=== PATIENT | male | born 1960 | race Caucasian/White ===

== ENCOUNTER 2019-01-10 01:37 | Outpatient (CLI) | payer OTHER, SELFPAY ==
[2019-01-10 10:34] LABS: Potassium 3.8 mmol/L (3.5-5.1)
== END 2019-01-10 01:57 ==
PROVIDERS: Visit Provider Neurological Surgery
DX: E87.6 Hypokalemia (principal)
CPT/HCPCS: 36415; 84132

== ENCOUNTER 2019-07-17 18:34 | Emergency (ER) | payer OTHER, SELFPAY ==
[2019-07-17 18:37] VITALS: BP 156/89; PULSE 87; RESP 20; TEMP 36.6; O2SAT 97
--- NOTE | 2019-07-17 18:48 | ED.GENADUL_ITS ---
Discharge Plan Disposition Patient Disposition: HOME Condition: Good Discharge Details Chief Complaint: Trauma Clinical Impression: Fall, Elbow fracture, left Primary Care Provider: [facility] [facility] Provider: Zehra Baca Home Meds and New Rx's Prescriptions: No Action bupropion HCl 150 MG tablet extended release 12 hr 1 tab PO HS RF: 0 citalopram 40 MG tablet 1 tab PO BID RF: 0 simvastatin 80 MG tablet 1 tab PO HS RF: 0 aspirin [Aspir-81] 81 MG tablet,delayed release (DR/EC) 1 tab PO HS RF: 0 oxycodone-acetaminophen 1 TAB tablet 1 tab PO PRN PRNRF: 0 clonidine HCl [Catapres] 0.2 MG tablet 1 tab PO HS RF: 0 fish oil-dha-epa 1 EACH capsule 1 cap PO BID RF: 0 naproxen 375 MG tablet 375 mg PO BID RF: 0 Spiriva with HandiHaler 18 MCG capsule, w/inhalation device 1 inh Inhalation DAILY RF: 0 meclizine [Antivert] 25 MG tablet 25 mg PO TID PRN PRNQty: 30 RF: 0 Discharge Instructions Instructions: Elbow Fracture in Adults (ED) Additional Instructions: Rest. Activities as tolerated. Elevate injury to prevent swelling. Keep splint in place, clean and dry. Wear sling during day but remove at night as discussed. Ice to the area of discomfort for 15 min. 3-5 times daily. Motrin every 8 hours with food or Tylenol every 6 hours for soreness if needed over the counter for comfort. [facility] doctor or [facility] one week Return for any worsening or concerns sooner if needed. Referrals: Brett Parra MD [ [facility] STAFF PHYSICIAN] - Discharge Data Discharge Date/Time-TO BE ENTERED AT DEPARTURE: 07/17/19 21:35 Medical Decision Making Is a 58-year-old patient presenting after a fall off the second rung of a ladder from the bottom patient fell onto his left side. Patient denies striking his head but does have an apparent hematoma on the superior aspect of his scalp. Patient is 3 months status post spinal disc surgery. Denies obvious neck pain but does report obvious left shoulder pain. Patient also complaining of mild left elbow pain. Patient denies chest pain with difficulty breathing shortness of breath or wheezing. Patient denies obvious abdominal pain or distention. Denies hematuria. Injury occurred this morning. Patient reports persistent pain throughout the day. Denies numbness, tingling or weakness. Denies any radiating symptoms to his legs. Patient denies any difficulty ambulating. Patient did take his daily pain medication for pain relief. Patient denies use of blood thinners. On exam again patient has a notable hematoma of his scalp. Denies obvious headache, dizziness, nausea, vomiting does report mild tingling in the left side of his face which he did have prior to his neck surgery and had somewhat improved after having his neck surgery. He is concerned with the return of tingling in the left side of his face. Patient has no significant midline tenderness at this time however given his mechanism and complaints of return of tingling will apply cervical collar and reimage his spine. Patient does have left-sided clavicle tenderness as well as shoulder pain with palpation. No humeral pain on exam. Obvious elbow pain noted. Imaging specifically CT head and cervical spine ordered as well as x-rays of thoracic spine as he does have mild midline tenderness in the T-spine. No associated step-off as discussed in physical exam. X-rays of clavicle, shoulder and left elbow ordered. Patient provided additional Tylenol by mouth. Patient is clinically stable, injury occurred at 9:00 this morning is hemodynamically stable at this time. CT of his head and cervical spine reveal no acute fracture or abnormalities. Cervical spine cleared. Patient has full range of motion without any paresthesia of upper or lower extremities. No concern for ligamentous injury on exam. X-rays of thoracic spine unremarkable for obvious fracture. Similarly left clavicle and shoulder x-rays are unremarkable. There is a question of a intra- articular radial head fracture of the left elbow. Given left elbow x-ray findings and patient does have point tenderness as well as pain with supination pronation of the elbow posterior splint placed as well as sling recommended rice and orthopedic follow-up. Patient agrees with plan of care. At this time patient feels stable for discharge. Close follow-up encouraged with primary care doctor. The patient was stable and requested discharge. Prior to discharge, my usual and customary return precautions were reviewed with the patient - this included follow-up instructions and reasons to return to the Emergency Department if conditions worsens, does not improve as expected, or other new concerns arise. HPI General Date/Time Provider Initiated Documentation: 07/17/19 18:36 . HPI Narrative: This is a 58-year-old patient presenting for a fall off the second rung from the bottom of a ladder. Patient reports he fell directly onto his left shoulder. Patient complaining of left clavicle, shoulder pain. Patient denies striking his head although nursing has reported an obvious hematoma to the superior scalp. Patient denies headache, dizziness, nausea, vomiting, loss of consciousness. Patient does report mild tingling of the left side of his face. Patient denies significant neck pain however he is 3 months status post neck surgery. Patient denies any chest pain, difficulty breathing shortness of breath or wheezing. Denies abdominal pain, distention or hematuria. Patient denies any right upper extremity pain or bilateral lower extremity pain. No numbness, tingling or weakness associated. Patient denies any other concerns or complaints at this time. Patient's injury occurred at approximately 9:00 this morning. Patient has been ambulating without difficulty. Patient primarily concerned with left shoulder pain. Related Data Home Medications Medication Instructions Recorded Confirmed aspirin [Aspir-81] 1 tab PO HS 11/24/13 07/17/19 bupropion HCl 1 tab PO HS 11/24/13 07/17/19 citalopram 1 tab PO BID 11/24/13 07/17/19 clonidine HCl [Catapres] 1 tab PO HS 11/24/13 07/17/19 fish oil-dha-epa 1 cap PO BID 11/24/13 07/17/19 oxycodone-acetaminophen 1 tab PO PRN PRN 11/24/13 07/17/19 simvastatin 1 tab PO HS 11/24/13 07/17/19 Spiriva with HandiHaler 1 inh INHALATION DAILY 11/16/14 07/17/19 naproxen 375 mg PO BID 11/16/14 07/17/19 meclizine [Antivert] 25 mg PO TID PRN PRN #30 tab 09/16/15 07/17/19 Previous Rx's Medication Instructions Recorded meclizine [Antivert] 25 mg PO TID PRN PRN #30 tab 09/16/15 Allergies Allergy/AdvReac Type Severity Reaction Status Date / Time gabapentin Allergy Severe partial Verified 07/17/19 18:41 paralysis venom-honey bee Allergy Intermediate Swelling/Ed Verified 07/17/19 18:41 [bee venom (honey bee)] diego General Stated Complaint: Trauma LUCINDA: 3 Review of Systems All systems reviewed & are unremarkable except as noted in HPI and below Constitutional Constitutional: Denies fatigue, Denies fever(s), Denies headache(s) and Denies malaise Eyes Eyes: Denies blurry vision, Denies diplopia and Denies loss of vision ENT Ears, Nose, Mouth, and Throat: Denies dizziness, Denies ear discharge, Denies otalgia, Denies headache(s), Denies nasal discharge and Denies neck pain Cardiovascular Cardiovascular: Denies chest pain, Denies dyspnea and Denies dyspnea on exertion Respiratory Respiratory: Denies cough, Denies pain on inspiration, Denies pain with cough, Denies dyspnea and Denies dyspnea on exertion Gastrointestinal Gastrointestinal: Denies abdominal pain, Denies bloating, Denies nausea and Denies vomiting Genitourinary Genitourinary: Denies hematuria Musculoskeletal Musculoskeletal: Denies abnormal gait, Denies deformity, Denies joint swelling, Reports limited range of motion (Left shoulder), Denies neck pain, Denies numbness and Denies tingling Integumentary/Breasts Skin/Breast: Denies wounds Neurologic Neurologic: Denies abnormal speech, Denies abnormal gait, Denies dizziness, Denies headache(s), Denies focal weakness, Denies loss of vision, Denies numbness, Denies tingling and Denies paresthesias Endocrine Endocrine: Denies fatigue [facility] Social History Smoking/Tobacco Use Status: Never Alcohol Intake: current Alcohol Intake frequency: holidays/special occasions only Drug use: Never Substance use type: does not use Do you feel safe at home: Yes Do you feel safe in your relationship?: Yes Exam Narrative Exam Narrative: CONST: Healthy appearing patient, in no acute distress. Well hydrated. Alert and alert. HENMT: Head nomocephalic, normal to inspection. Superior scalp hematoma present. No laceration associated. Hearing grossly normal. External ear canal no erythema or swelling. TM normal bilaterally. Nose normal to inspection. No rhinnorhea. Normal facial exam. Oral mucosa normal. Tounge normal. Dentition normal. Normal posterior oropharynx. Uvula midline. EYES: General normal appearance. Alignment normal. Eyelids normal. Conjunctiva normal. Sclera normal. PERRL. No nystagmus. NECK: Normal visual inspection. FROM. No lymphadenopathy. Trachea midline. No Midline tenderness. Mild paraspinal tenderness. CHEST: Normal insepection of the chest. No palpable chest pain RESP: Normal respiratory effort. Speaking full sentences. No cough. No wheezing. No retractions. Clear to auscaltation. Breath sound equal and present bilaterally. CARDIO: No JVD. Normal PMI. Regular Rate. Regular Rhythm. Normal peripheral pulses. GI: Normal inspection of abdomen. No distension. Soft. Nontender. Bowel sounds present in all 4 quadrants. No rebound. No gaurding. MUSCULOSKELETAL: Normal Gait. FROM right upper and bilateral lower extremities. Distal neurovascularly intact. Sensation intact distally. Pain with palpation of left clavicle, left shoulder. He has no obvious deformity noted at the left shoulder. No significant humeral pain with palpation. Elbow pain with palpation noted as well as pain with supination pronation of the elbow. No significant forearm, wrist or hand pain with palpation. Pulses intact distally. Sensation intact distally. [employer]ator strength normal and equal bilaterally. SKIN: Normal. Dry. No rashes. NEURO: Alert and awake. Speech clear. Alert and oriented x 3. Speech is clear. Cranial nerves intact as tested III - XI. Normal [id number]-[id number] test. No pronator drift. Normal heel-sandoval test. No Nystagmus. Gait normal. Strength intact in all extremities. Sensation intact in all extremities. PSYCH: Normal affect. Cooperative. Course Vital Signs Vital signs: Vital Signs Temperature 36.6 C 07/17/19 18:37 Pulse 87 07/17/19 18:37 Respiratory Rate 07/17/19 18:37 Blood Pressure 156/89 H 07/17/19 18:37 Pulse Oximetry 97 07/17/19 18:37 Temperature 36.6 C 07/17/19 18:37 Temperature Source Temporal Artery Scan 07/17/19 18:37 Pulse 87 07/17/19 18:37 Respiratory Rate 07/17/19 18:37 Blood Pressure 156/89 H 07/17/19 18:37 Blood Pressure Position Sitting 07/17/19 18:37 Pulse Oximetry 97 07/17/19 18:37 Oxygen Delivery Method Room Air 07/17/19 18:37 Oxygen Flow Rate 0 07/17/19 18:37 Procedures Orthopedic Splinting/Casting Injury #1: Side: left Upper Extremity Injury Location: elbow Upper Extremity Immobilizer: sling/shoulder immobilizer and posterior splint
--- NOTE | 2019-07-17 19:01 | DI.CT_ITS ---
EXAM: CT HEAD CERVICAL SPINE WO CLINICAL HISTORY: pain, fall TECHNIQUE: Imaging Protocol: Axial computed tomography images with coronal and sagittal reformatted images were created and reviewed Noncontrast COMPARISON: HEAD AND CSPINE W/O CONTRAST from 04/09/2016 FINDINGS: Head CT Ventricles and Extra axial spaces: Normal in size and morphology for the patient's age. Hemorrhage: None. Cerebral parenchyma: Normal. Midline shift: None. Brainstem/Cerebellum: Normal. Calvarium: Normal. Visualized Paranasal sinuses/Mastoids: Clear. IMPRESSION: No acute abnormality. FINDINGS: Cervical Spine CT BONES: Vertebral body heights are maintained. Intervertebral disc spaces are normal. There is a meta llic density seen at the C5-6 disc space. Alignment is normal. There is no evidence of acute fractur e. SOFT TISSUES: No paraspinal hematoma. The airway appears intact. Mild degenerative disc changes and facet degenerative changes are seen . IMPRESSION: Postsurgical and degenerative changes, no acute abnormality. DATA REPOSITORY: All CT scans at this facility are submitted to the National Radiology Data Registry (NRDR) Dose Index Registry (DIR) with the [employer] (ACR). RADIATION OPTIMIZATION: All CT scans at this facility use at least one of these dose optimization te chniques: automated exposure control; mA and/or kV adjustment per patient size (includes targeted exa ms where dose is matched to clinical indication); or iterative reconstruction.
--- NOTE | 2019-07-17 19:09 | DI.RAD_ITS ---
EXAM: XR ELBOW LT COMPLETE INDICATION: pain, fall. COMPARISON: No exams were available for comparison TECHNIQUE: 2D digital imaging was performed. FINDINGS: No fracture or joint effusion is seen. There is mild spurring at both epicondyles. IMPRESSION: No acute abnormality.
--- NOTE | 2019-07-17 19:16 | DI.RAD_ITS ---
EXAM: XR SHOULDER LT COMPLETE 2+V INDICATION: pain, fall. COMPARISON: No exams were available for comparison TECHNIQUE: 2D digital imaging was performed. FINDINGS: No fracture or dislocation is seen. There are degenerative changes at the AC joint. The AC joint is not widened. IMPRESSION: No acute abnormality.
--- NOTE | 2019-07-17 19:19 | DI.RAD_ITS ---
EXAM: XR CLAVICLE LT INDICATION: pain, fall. COMPARISON: No exams were available for comparison TECHNIQUE: 2D digital imaging was performed. FINDINGS: No fracture or dislocation is seen. The AC joint is not widened. There are degenerative changes at the AC joint. IMPRESSION: No acute abnormality.
--- NOTE | 2019-07-17 19:22 | DI.VRAD_ITS ---
PROCEDURE INFORMATION: Exam: CT Head Without Contrast Exam date and time: 07/17/2019 7:01 PM Age: 58 years old Clinical indication: Injury or trauma; Initial encounter; Patient HX: Pain, fall; Per PT: Fell off ladder, 2 steps up TECHNIQUE: Imaging protocol: Computed tomography of the head without contrast. COMPARISON: MRI - BRAIN WO CONTRAST 04/10/2016 8:04 PM FINDINGS: Brain: Normal. No hemorrhage. Unremarkable white matter. No mass effect. Ventricles: Normal. No ventriculomegaly. Bones/joints: Unremarkable. No acute fracture. Sinuses: Visualized sinuses are unremarkable. No fluid levels. Mastoid air cells: Visualized mastoid air cells are well aerated. Soft tissues: Unremarkable. IMPRESSION: No acute intracranial abnormality. PROCEDURE INFORMATION: Exam: CT Cervical Spine Without Contrast Exam date and time: 07/17/2019 7:01 PM Age: 58 years old Clinical indication: Injury or trauma; Initial encounter; Patient HX: Pain, fall; Per PT: Fell off ladder, 2 steps up TECHNIQUE: Imaging protocol: Computed tomography images of the cervical spine without contrast. COMPARISON: MRI - BRAIN WO CONTRAST 04/10/2016 8:04 PM FINDINGS: Tubes, catheters and devices: Surgical device at the C5/C6 disc space Vertebrae: No acute fracture of the cervical spine. No subluxation or dislocation of the cervical spine. Anterior osteophyte formation C6/C7 Degenerative changes in the facets at multiple levels Discs/Spinal canal/Neural foramina: Intervertebral disc space narrowing C6/C7 may represent degenerative disc disease.. Posterior osteophyte formation C6/C7 Degenerative changes at C1/C2 Soft tissues: Unremarkable. Thyroid: The thyroid is unremarkable Lungs: Lung apices are normal. IMPRESSION: 1. No acute fracture of the cervical spine. 2. No subluxation or dislocation of the cervical spine. 3. Intervertebral disc space narrowing C6/C7 may represent degenerative disc disease.. 4. Posterior osteophyte formation along the cervical spine results in narrowing of the spinal canal to less than 10 mm consistent with spinal stenosis. Dictated and Authenticated by: Yari Zavala MD. Ordering:RUBIN Shahid MD
[2019-07-17] MEDS: Acetaminophen 500 MG TAB 1000 MG PO (19:33)
--- NOTE | 2019-07-17 19:43 | DI.VRAD_ITS ---
PROCEDURE INFORMATION: Exam: XR Left Shoulder Exam date and time: 07/17/2019 7:30 PM Age: 58 years old Clinical indication: Pain; Shoulder; Left; Patient HX: Fall from ladder TECHNIQUE: Imaging protocol: XR Left shoulder. Views: 2 or more views. COMPARISON: No relevant prior studies available. FINDINGS: Bones/joints: Degenerative changes in the glenohumeral joints and acromioclavicular joints There is no evidence of acute fracture.There is no evidence of malalignment or dislocation. Soft tissues: Normal. IMPRESSION: There is no evidence of acute fracture.There is no evidence of malalignment or dislocation. Dictated and Authenticated by: Yari Zavala MD. Ordering:RUBIN Shahid MD
--- NOTE | 2019-07-17 19:44 | DI.VRAD_ITS ---
PROCEDURE INFORMATION: Exam: XR Left Elbow Exam date and time: 07/17/2019 7:30 PM Age: 58 years old Clinical indication: Pain; Elbow; Left; Patient HX: Fall from ladder TECHNIQUE: Imaging protocol: XR Left elbow. Views: 3 or more views. COMPARISON: No relevant prior studies available. FINDINGS: Bones/joints: Lucency in the radial head may represent nondisplaced intra-articular radial head fracture. Soft tissues: Normal. IMPRESSION: Lucency in the radial head may represent nondisplaced intra-articular radial head fracture. Dictated and Authenticated by: Yari Zavala MD. Ordering:RUBIN Shahid MD
--- NOTE | 2019-07-17 19:45 | DI.VRAD_ITS ---
PROCEDURE INFORMATION: Exam: XR Left Clavicle, Complete Exam date and time: 07/17/2019 7:29 PM Age: 58 years old Clinical indication: Pain; Shoulder; Left; Patient HX: Fall from ladder TECHNIQUE: Imaging protocol: XR Left clavicle complete. Any number of views. COMPARISON: No relevant prior studies available. FINDINGS: Bones/joints: No fracture of the clavicle. There is no evidence of acute fracture.There is no evidence of malalignment or dislocation. Degenerative changes in the glenohumeral joint and acromioclavicular joint. Soft tissues: Normal. IMPRESSION: 1. No fracture of the clavicle. 2. There is no evidence of acute fracture.There is no evidence of malalignment or dislocation. Dictated and Authenticated by: Yari Zavala MD. Ordering:RUBIN Shahid MD
--- NOTE | 2019-07-17 19:49 | DI.RAD_ITS ---
EXAM: XR THORACIC SPINE COMPLETE INDICATION: pain, fall. TECHNIQUE: 2D digital imaging was performed. FINDINGS: No fracture is identified. There are mild degenerative disc changes. There is no scoliosis. The vi sualized portions of the lungs are unremarkable. The heart size appears normal. IMPRESSION: Degenerative changes. No acute abnormality.
--- NOTE | 2019-07-17 20:18 | DI.VRAD_ITS ---
PROCEDURE INFORMATION: Exam: XR Thoracic Spine, 3 Views Exam date and time: 07/17/2019 6:51 PM Age: 58 years old Clinical indication: Injury or trauma; Initial encounter; Blunt trauma (contusions or hematomas); Prior surgery; Patient HX: Fall from ladder; TECHNIQUE: Imaging protocol: XR of the thoracic spine, 3 views. COMPARISON: No relevant prior studies available. FINDINGS: Vertebrae: There is no evidence of acute fracture.There is no evidence of malalignment or dislocation. Degenerative changes in the thoracic spine Soft tissues: Normal. IMPRESSION: There is no evidence of acute fracture.There is no evidence of malalignment or dislocation. Dictated and Authenticated by: Yari Zavala MD. Ordering:RUBIN Shahid MD
[2019-07-17 21:31] VITALS: BP 156/89; PULSE 87; RESP 20; TEMP 36.6; O2SAT 97
== END 2019-07-17 21:35 | disposition home or self-care (01) ==
PROVIDERS: Emergency Provider Physician Assistant
DX: M25.512 Pain in left shoulder (principal); S52.122A Displaced fracture of head of left radius, initial encounter for closed fracture; M54.6 Pain in thoracic spine; R20.2 Paresthesia of skin; S00.03XA Contusion of scalp, initial encounter; W11.XXXA Fall on and from ladder, initial encounter
CPT/HCPCS: 24650; 99284; 70450; 72072; 72125; 73000; 73030; 73080; L0172; L3650